=== PATIENT | male | born 1960 | race African-American/Black ===

== ENCOUNTER 2016-10-03 10:17 | Emergency (ER) | payer OTHER | END 2016-10-03 12:06 | disposition home or self-care (01) | LOC: FER 10:17 | DX: S42.121A Displaced fracture of acromial process, right shoulder, initial encounter for closed fracture (principal); I10 Essential (primary) hypertension; F17.200 Nicotine dependence, unspecified, uncomplicated; W18.30XA Fall on same level, unspecified, initial encounter; Y93.K1 Activity, walking an animal; Y92.009 Unspecified place in unspecified non-institutional (private) residence as the place of occurrence of the external cause | CPT/HCPCS: 73030; J1885 ==